=== PATIENT | female | born 1965 | race Caucasian/White ===

== ENCOUNTER 2016-06-20 16:49 | Inpatient (IN) | payer OTHER, MEDICARE ==
[2016-06-20] MEDS ORDERED: IPRATROPIUM/ALBUTEROL 0.5-2.5 MG/3 ML AMPUL NEB ONE (16:59)
[2016-06-20] MEDS ORDERED: METHYLPREDNISOLONE INJ 125 MG/2 ML SDV IV ONE (17:00)
--- NOTE | 2016-06-20 17:04 | ER Document Report ---
ED General - General Chief Complaint: Shortness Of Breath Stated Complaint: CHEST HEAVINESS Time seen by provider: 17:01 Mode of Arrival: Medic Information source: Patient Notes: 51-year-old female with 2 week history of gradually worsening cough productive of yellow sputum, shortness of breath, dyspnea on exertion, sore throat with coughing, subjective fever and chills. She reports nausea for the past 2 days but no vomiting. She reports diarrhea today on 2 occasions. She denies dysuria , abdominal pain, or back pain. She does report diffuse body aches and reported EMS personnel chest heaviness but to this examiner she states she only hurts when she coughs in her chest. Patient denies earache, headache, visual disturbances, pain numbness weakness to extremities. Physical Exam: General: Alert, appears well. HEENT: Normocephalic. Atraumatic. PERRLA. Extraocular movements intact. Oropharynx clear. Neck: Supple. Non-tender. No JVD Respiratory: Wheezes and rhonchi throughout all lung padron breath sounds equal bilaterally tachypnea and no accessory muscle use. Cardiovascular: Tachycardic and regular no murmur Abdominal: Normal Inspection. Soft, non-tender. No distension. Normal Bowel Sounds. Back: Non-tender. No deformity or step off. Extremities: Moves all four extremities. EXTREMITIES warm 2+ pulses of cyanosis no edema no Homans sign bilaterally Neurological: Speech clear mentation clear moves all extremities to command. Psychological: Normal affect. Normal Mood. Skin: Warm. Dry. Normal color. - Related Data Allergies/Adverse Reactions: bupropion [From Wellbutrin] Adverse Reaction (Verified 06/20/16 18:49) codeine Adverse Reaction (Verified 06/20/16 18:49) Past Medical History - Social History Smoking Status: Current Every Day Smoker Family History: Hypertension. denies: CAD - Past Medical History Cardiac Medical History: Reports: Hx Hypercholesterolemia, Hx Hypertension Denies: Hx Coronary Artery Disease Neurological Medical History: Denies: Hx Cerebrovascular Accident Endocrine Medical History: Reports: Hx Diabetes Mellitus Type 2 Past Surgical History: Reports: Hx Cholecystectomy Review of Systems - Review of Systems Constitutional: See HPI EENT: Throat pain. denies: Ear pain Cardiovascular: See HPI Respiratory: See HPI Gastrointestinal: See HPI Genitourinary: denies: Burning, Dysuria Musculoskeletal: Muscle pain. denies: Ankle swelling Hematologic/Lymphatic: denies: Swollen glands Neurological/Psychological: denies: Weakness, Numbness Physical Exam - Vital signs Vitals: Temp Pulse Resp BP Pulse Ox 98.3 F 104 H 16 96/62 L 96 06/20/16 16:53 06/20/16 16:53 06/20/16 16:53 06/20/16 16:53 06/20/16 16:53 Course - Re-evaluation Re-evalutation: 06/20/16 19:35 Reevaluation patient after one nebulizer treatment in route 3 here 125 mg of Solu-Medrol 1 g of Rocephin and a liter saline shows her oxygen saturation to be 87% on room air. Patient continues wheezes and rhonchi throughout all lung padron with prolonged expiratory phase Concerned that she will not do well in the outpatient setting at this point I discussed case with Dr. Rios of the hospitalist service and he asked that patient be admitted to a telemetry bed - Vital Signs Vital signs: Temp Pulse Resp BP Pulse Ox 98.3 F 104 H 13 120/69 96 06/20/16 16:53 06/20/16 16:53 06/20/16 18:01 06/20/16 18:01 06/20/16 18:01 - Laboratory Result Diagrams: 06/20/16 17:22 06/20/16 17:22 Laboratory results interpreted by me: 06/20/16 06/20/16 06/20/16 17:22 17:22 17:22 RBC 5.95 H MCV 77 L MCH 24.1 L MCHC 31.4 L RDW 18.2 H Lymphocytes % 8.9 L Monocytes % 14.1 H Sodium 133.7 L Chloride 94 L Creatinine 1.39 H Est GFR ( Amer) 49 L Est GFR (Non-Af Amer) 40 L Glucose 155 H NT-Pro-B Natriuret Pep 277 H - EKG Interpretation by Me Additional EKG results interpreted by me: 06/20/16 17:11 EKG reviewed by myself sinus tachycardia at 100 no acute changes Discharge - Discharge Clinical Impression: Acute respiratory failure with hypoxemia Pneumonia Qualifiers: Pneumonia type: due to unspecified organism Laterality: right Lung location: lower lobe of lung Qualified Code(s): J18.1 - Lobar pneumonia, unspecified organism Condition: Fair Disposition: ADMITTED INPATIENT Admitting Provider: Hospitalist Unit Admitted: Telemetry
[2016-06-20 17:33] LABS: ABSOLUTE BASOPHILS # (AUTO) 0.1 10^3/uL (0.0-0.2); ABSOLUTE LYMPHOCYTES (AUTO) 0.9 10^3/uL (0.5-4.7); ABSOLUTE MONOCYTES (AUTO) 1.4 10^3/uL (0.1-1.4); ABSOLUTE NEUT (AUTO) 7.8 10^3/uL (1.7-8.2); BASOPHILS % (AUTO) 0.6 % (0-2); HEMATOCRIT 45.6 % (36.0-47.0); HEMOGLOBIN 14.3 g/dL (12.0-15.5); HGB HCT DIFFERENCE -2.7; LYMPHOCYTES % (AUTO) 8.9 % (13-45); MEAN CORPUSCULAR HEMOGLOBIN 24.1 pg (27.0-33.4); MEAN CORPUSCULAR HGB CONC 31.4 g/dL (32.0-36.0); MEAN CORPUSCULAR VOLUME 77 fl (80-97); MONOCYTES % (AUTO) 14.1 % (3-13); RED BLOOD COUNT 5.95 10^6/uL (3.72-5.28); RED CELL DISTRIBUTION WIDTH 18.2 % (11.5-14.0); SEGMENTED NEUTROPHILS % (AUTO) 76.4 % (42-78); WHITE BLOOD COUNT 10.2 10^3/uL (4.0-10.5)
[2016-06-20 17:54] LABS: ALANINE AMINOTRANSFERASE 25 U/L (9-52); ALBUMIN 4.6 g/dL (3.5-5.0); ALKALINE PHOSPHATASE 66 U/L (38-126); ANION GAP 16 (5-19); ASPARTATE AMINO TRANSFERASE 23 U/L (14-36); BILIRUBIN,TOTAL 0.8 mg/dL (0.2-1.3); BLOOD UREA NITROGEN 14 mg/dL (7-20); CALCIUM 9.6 mg/dL (8.4-10.2); CARBON DIOXIDE 24 mmol/L (22-30); CHLORIDE 94 mmol/L (98-107); CREATINE KINASE 75 U/L (30-135); CREATININE RESULT 1.39 mg/dL (0.52-1.25); GLUCOSE 155 mg/dL (75-110); MAGNESIUM 1.9 mg/dL (1.6-2.3); POTASSIUM 3.6 mmol/L (3.6-5.0); SODIUM 133.7 mmol/L (137-145); TOTAL PROTEIN 7.7 g/dL (6.3-8.2)
[2016-06-20 18:06] LABS: CREATINE KINASE MB 0.67 ng/mL (<4.55)
[2016-06-20 18:07] LABS: TROPONIN I < 0.012 ng/mL
[2016-06-20] MEDS ORDERED: NORMAL SALINE 1000 ML 1,000 ML IV ONE (18:24)
[2016-06-20] MEDS ORDERED: CEFTRIAXONE 1 GM/D5W RTU 50 ML IV ONE (18:24)
--- NOTE | 2016-06-20 18:56 | EKG REPORT ---
SEVERITY:- BORDERLINE ECG - SINUS TACHYCARDIA PROBABLE LEFT ATRIAL ABNORMALITY NONSPECIFIC ST-T CHANGES LATERAL LEADS. : Confirmed by: Gerald Appiah MD 20-Jun-2016 18:55:41
[2016-06-20] MEDS ORDERED: ACETAMINOPHEN 325 MG TABLET PO PRN (19:35)
[2016-06-20] MEDS ORDERED: LEVOFLOXACIN 750 MG/D5W RTU 150 ML IV ONE (19:37)
[2016-06-20] MEDS: IPRATROPIUM/ALBUTEROL 0.5-2.5 MG/3 ML AMPUL NEB SCH (20:39)
[2016-06-20] MEDS: GUAIFENESIN SYRP 200 MG/10 ML UDC PO PRN (21:09)
[2016-06-20] MEDS ORDERED: DEXTROSE 50%-WATER 25 GM/50 ML DISP.SYRIN IV PRN ×2 (21:30)
[2016-06-20] MEDS ORDERED: DEXTROSE 40% GEL 15 GM TUBE PO PRN ×2 (21:30)
[2016-06-20] MEDS ORDERED: GLUCAGON,HUMAN RECOMB 1 MG INJ IM PRN (21:30)
[2016-06-20] MEDS: AZITHROMYCIN 500 MG in DEXTROSE 5%-WATER 250 ML IV SCH (22:50)
[2016-06-20] MEDS: HEPARIN SOD (PORCINE) 5,000 UNIT/ML 1 ML SYRINGE SUBCUT SCH (22:50)
[2016-06-20] MEDS: FLUTICASONE NASAL SPRAY 50 MCG/SPRY 120 SPRAY/16 GM NASL SCH (23:16)
[2016-06-20] MEDS: INSULIN LISPRO 100 UNIT/ML 3 ML VIAL SUBCUT PRN (23:17)
[2016-06-21] MEDS: IBUPROFEN 600 MG TABLET PO PRN ×3 (00:25→18:31)
[2016-06-21] MEDS: GUAIFENESIN SYRP 200 MG/10 ML UDC PO PRN ×2 (01:30→08:24)
[2016-06-21] MEDS: IPRATROPIUM/ALBUTEROL 0.5-2.5 MG/3 ML AMPUL NEB SCH ×4 (02:06→20:01)
--- NOTE | 2016-06-21 03:14 | PDOC H&P ---
History of Present Illness Admission Date/PCP: 06/20/16 19:36 Patient complains of: Shortness of breath and cough History of Present Illness: NILDA DUVALL is a 51 year old female with a past Nico history of morbid obesity diabetes hypertension and sleep apnea who had been her usual state of health until approximately 3 days ago noting exceptional shortness of breath and a productive cough of purulent sputum and pleuritic chest pain. Use of over -the-counter medications have been of little help prompting evaluation emergency room where she is found to have a right lower lobe pneumonia and hypoxia with a pulse oximetry of 87% on room air she's referred to the hospitalist for admission. She denies infectious contacts or recent change in medications. Patient is tobacco dependent from the age of 19 Past Medical History Cardiac Medical History: Reports: Hyperlipidema, Hypertension Denies: Coronary Artery Disease Pulmonary Medical History: Reports: Chronic Obstructive Pulmonary Disease (COPD) , Sleep Apnea Endocrine Medical History: Reports: Diabetes Mellitus Type 2 Psychiatric Medical History: Reports: Depression Hematology: Reports: Anemia Past Surgical History Past Surgical History: Reports: Section - 2, Cholecystectomy, Tonsillectomy Social History Information Source: Patient Lives with: Family Smoking Status: Current Every Day Smoker Cigarettes Packs Per Day: 1 Frequency of Alcohol Use: Rare Hx Recreational Drug Use: No Drugs: None Hx Prescription Drug Abuse: No - Advance Directive Resuscitation Status: Full Code Family History Family History: CAD, Hypertension Parental Family History Reviewed: Yes Children Family History Reviewed: Yes Sibling(s) Family History Reviewed.: Yes Medication/Allergy Home Medications: Albuterol Sulfate [Albuterol Sulfate 2.5mg/3 mL] 1 vial IH Q4HP PRN 06/20/16 Albuterol Sulfate [Ventolin HFA MDI 18 GM] 2 puff IH Q4HP PRN 06/20/16 Atorvastatin Calcium [Lipitor 10 mg Tablet] 10 mg PO QHS 06/20/16 Bisoprolol Fumarate [Zebeta 10 mg Tablet] 10 mg PO DAILY 06/20/16 Canagliflozin [Invokana] 100 mg PO DAILY 06/20/16 Dextroamphetamine/Amphetamine [Adderall 20 mg Tablet] 20 mg PO BID 06/20/16 Duloxetine HCl [Cymbalta] 60 mg PO BID 06/20/16 Famotidine [Pepcid 20 mg Tablet] 20 mg PO HSP PRN 06/20/16 Ibuprofen [Advil] 600 mg PO Q6HP PRN 06/20/16 Naproxen Na-Diphenhydramin HCl [Aleve Pm Caplet] 1 each PO HSP PRN 06/20/16 Pantoprazole Sodium [Protonix] 40 mg PO BIDBS 06/20/16 Pregabalin [Lyrica 100 mg Capsule] 100 mg PO BID 06/20/16 Pregabalin [Lyrica 50 mg Capsule] 50 mg PO BID 06/20/16 Roflumilast [Daliresp 500 mcg Tablet] 500 mcg PO DAILY 06/20/16 Sitagliptin Phosphate [Januvia] 100 mg PO DAILY 06/20/16 Allergies/Adverse Reactions: bupropion [From Wellbutrin] Adverse Reaction (Verified 06/20/16 18:49) codeine Adverse Reaction (Verified 06/20/16 18:49) Review of Systems Constitutional: PRESENT: chills, fatigue, weakness Eyes: ABSENT: visual disturbances Ears: ABSENT: hearing changes Cardiovascular: ABSENT: chest pain, dyspnea on exertion, edema, orthropnea, palpitations Respiratory: PRESENT: cough, dyspnea, sputum, other - Pleuritic chest pain with coughing and deep inspiration Gastrointestinal: ABSENT: abdominal pain, constipation, diarrhea, hematemesis, hematochezia, nausea, vomiting Genitourinary: ABSENT: dysuria, hematuria Musculoskeletal: ABSENT: joint swelling Integumentary: ABSENT: rash, wounds Neurological: ABSENT: abnormal gait, abnormal speech, confusion, dizziness, focal weakness, syncope Psychiatric: ABSENT: anxiety, depression, homidical ideation, suicidal ideation Endocrine: ABSENT: cold intolerance, heat intolerance, polydipsia, polyuria Hematologic/Lymphatic: ABSENT: easy bleeding, easy bruising Physical Exam Vital Signs: Temp Pulse Resp BP Pulse Ox 97.7 F 76 16 109/68 95 06/20/16 23:14 06/21/16 02:05 06/21/16 02:05 06/20/16 23:13 06/20/16 23:13 General appearance: PRESENT: cooperative, disheveled, mild distress, morbidly obese, well-developed, well-nourished Head exam: PRESENT: atraumatic, normocephalic Eye exam: PRESENT: conjunctiva pink, EOMI, PERRLA. ABSENT: scleral icterus Ear exam: PRESENT: normal external ear exam Mouth exam: PRESENT: moist, tongue midline Neck exam: ABSENT: carotid bruit, JVD, lymphadenopathy, thyromegaly Respiratory exam: PRESENT: accessory muscle use, decreased breath sounds, prolonged expiratory phas, rhonchi, symmetrical, tachypnea. ABSENT: rales, wheezes Cardiovascular exam: PRESENT: RRR. ABSENT: diastolic murmur, rubs, systolic murmur Pulses: PRESENT: normal dorsalis pedis pul Vascular exam: PRESENT: normal capillary refill GI/Abdominal exam: PRESENT: normal bowel sounds, soft. ABSENT: distended, guarding, mass, organolmegaly, rebound, tenderness Rectal exam: PRESENT: deferred Extremities exam: PRESENT: full ROM. ABSENT: calf tenderness, clubbing, pedal edema Neurological exam: PRESENT: alert, awake, oriented to person, oriented to place , oriented to time, oriented to situation, CN II-XII grossly intact. ABSENT: motor sensory deficit Psychiatric exam: PRESENT: appropriate affect, normal mood. ABSENT: homicidal ideation, suicidal ideation Skin exam: PRESENT: dry, intact, warm. ABSENT: cyanosis, rash Results Impressions: Chest X-Ray 06/20/16 16:57 IMPRESSION: Mild right lower lobar pneumonia/pneumonitis. Assessment & Plan - Diagnosis (1) Pneumonia Qualifiers: Pneumonia type: due to unspecified organism Laterality: right Lung location: lower lobe of lung Qualified Code(s): J18.1 - Lobar pneumonia, unspecified organism Is this a current diagnosis for this admission?: YesPlan: Empiric antibiotics, albuterol Atrovent, incentive spirometry follow-up CBC blood and sputum culture (2) COPD exacerbation Is this a current diagnosis for this admission?: YesPlan: Albuterol and Atrovent incentive spirometry BiPAP and tobacco cessation counseling (3) Obstructive sleep apnea Is this a current diagnosis for this admission?: YesPlan: BiPAP (4) Diabetes Qualifiers: Diabetes mellitus type: type 2 Plan: Home regiment with sliding scale insulin before every meal seen at bedtime (5) Acute hypoxemic respiratory failure Is this a current diagnosis for this admission?: YesPlan: Secondary to #1 add supplemental oxygen - Time Time Spent: 50 to 70 Minutes
[2016-06-21] MEDS: LANSOPRAZOLE 30 MG TAB.RAP.DR PO SCH ×2 (05:05→17:22)
[2016-06-21] MEDS: HEPARIN SOD (PORCINE) 5,000 UNIT/ML 1 ML SYRINGE SUBCUT SCH ×3 (05:06→21:07)
[2016-06-21 07:52] LABS: ABSOLUTE LYMPHOCYTES (AUTO) 0.4 10^3/uL (0.5-4.7); ABSOLUTE MONOCYTES (AUTO) 0.4 10^3/uL (0.1-1.4); ABSOLUTE NEUT (AUTO) 5.7 10^3/uL (1.7-8.2); BASOPHILS % (AUTO) 0.4 % (0-2); HEMATOCRIT 43.5 % (36.0-47.0); HEMOGLOBIN 13.5 g/dL (12.0-15.5); LYMPHOCYTES % (AUTO) 5.9 % (13-45); MEAN CORPUSCULAR HGB CONC 31.1 g/dL (32.0-36.0); MEAN CORPUSCULAR VOLUME 77 fl (80-97); MONOCYTES % (AUTO) 6.6 % (3-13); RED BLOOD COUNT 5.64 10^6/uL (3.72-5.28); RED CELL DISTRIBUTION WIDTH 18.1 % (11.5-14.0); SEGMENTED NEUTROPHILS % (AUTO) 87.1 % (42-78); WHITE BLOOD COUNT 6.6 10^3/uL (4.0-10.5)
[2016-06-21 08:12] LABS: ANION GAP 16 (5-19); BLOOD UREA NITROGEN 24 mg/dL (7-20); CALCIUM 9.3 mg/dL (8.4-10.2); CARBON DIOXIDE 23 mmol/L (22-30); CHLORIDE 98 mmol/L (98-107); CREATININE RESULT 1.08 mg/dL (0.52-1.25); GLUCOSE 180 mg/dL (75-110); POTASSIUM 4.3 mmol/L (3.6-5.0)
[2016-06-21] MEDS: CEFTRIAXONE 1 GM/D5W RTU 50 ML IV SCH (11:37)
[2016-06-21] MEDS: PREGABALIN 50 MG CAPSULE PO SCH ×2 (11:39→21:09)
[2016-06-21] MEDS: DULOXETINE HCL 30 MG CAPSULE.DR PO SCH ×2 (11:40→17:22)
[2016-06-21] MEDS: SITAGLIPTIN PHOSPHATE 50 MG TABLET PO SCH (11:40)
[2016-06-21] MEDS: FLUTICASONE NASAL SPRAY 50 MCG/SPRY 120 SPRAY/16 GM NASL SCH ×2 (11:45→21:09)
[2016-06-21] MEDS ORDERED: GUAIFENESIN 600 MG TABLET.SA PO ONE (13:00)
[2016-06-21] MEDS: NICOTINE 14 MG/24 HR PATCH.TD24 TD SCH (13:18)
[2016-06-21] MEDS: BENZONATATE 100 MG CAPSULE PO SCH ×2 (13:19→21:09)
[2016-06-21] MEDS: OXYCODONE HCL IR 5 MG TABLET PO PRN ×2 (13:19→19:19)
[2016-06-21] MEDS: ROFLUMILAST 500 MCG TABLET PO SCH (17:24)
--- NOTE | 2016-06-21 17:24 | PDOC PROGRESS REPORT ---
Subjective Progress Note for:: 06/21/16 Subjective:: feels better states breathing is easier alert and awake Physical Exam Vital Signs: Temp Pulse Resp BP Pulse Ox 99 F 85 16 120/56 L 96 06/21/16 12:00 06/21/16 14:00 06/21/16 14:00 06/21/16 12:00 06/21/16 14:00 Intake & Output 06/20/16 06/21/16 06/22/16 00:59 00:59 00:59 Intake Total 605 Balance 605 Weight 114 kg 114 kg General appearance: PRESENT: no acute distress, well-developed, well-nourished Head exam: PRESENT: atraumatic, normocephalic Eye exam: PRESENT: conjunctiva pink, EOMI, PERRLA. ABSENT: scleral icterus Ear exam: PRESENT: normal external ear exam Mouth exam: PRESENT: moist, tongue midline Neck exam: ABSENT: carotid bruit, JVD, lymphadenopathy, thyromegaly Respiratory exam: PRESENT: wheezes - bilaterally. ABSENT: rales, rhonchi Cardiovascular exam: PRESENT: RRR. ABSENT: diastolic murmur, rubs, systolic murmur Pulses: PRESENT: normal dorsalis pedis pul Vascular exam: PRESENT: normal capillary refill GI/Abdominal exam: PRESENT: normal bowel sounds, soft. ABSENT: distended, guarding, mass, organolmegaly, rebound, tenderness Rectal exam: PRESENT: deferred Extremities exam: PRESENT: full ROM. ABSENT: calf tenderness, clubbing, pedal edema Neurological exam: PRESENT: alert, awake, oriented to person, oriented to place , oriented to time, oriented to situation, CN II-XII grossly intact. ABSENT: motor sensory deficit Psychiatric exam: PRESENT: appropriate affect, normal mood. ABSENT: homicidal ideation, suicidal ideation Skin exam: PRESENT: dry, intact, warm. ABSENT: cyanosis, rash Results Laboratory Results: 06/21/16 06:58 06/21/16 06:58 06/21/16 06/21/16 06:58 06:58 WBC 6.6 RBC 5.64 H Hgb 13.5 Hct 43.5 MCV 77 L MCH 24.0 L MCHC 31.1 L RDW 18.1 H Plt Count 216 Seg Neutrophils % 87.1 H Lymphocytes % 5.9 L Monocytes % 6.6 Eosinophils % 0.0 Basophils % 0.4 Absolute Neutrophils 5.7 Absolute Lymphocytes 0.4 L Absolute Monocytes 0.4 Absolute Eosinophils 0.0 Absolute Basophils 0.0 Sodium 137.0 Potassium 4.3 Chloride 98 Carbon Dioxide 23 Anion Gap 16 BUN 24 H Creatinine 1.08 Est GFR ( Amer) > 60 Est GFR (Non-Af Amer) 54 L Glucose 180 H Calcium 9.3 Impressions: Chest X-Ray 06/20/16 16:57 IMPRESSION: Mild right lower lobar pneumonia/pneumonitis. Assessment & Plan - Diagnosis (1) COPD exacerbation Is this a current diagnosis for this admission?: YesPlan: continue steroids , nebs ; added nicotine patch (2) Diabetes Qualifiers: Diabetes mellitus type: type 2 Diabetes mellitus complication status: with unspecified complications Diabetes mellitus skilled nursing insulin use: without termite exterminator helper use Qualified Code(s): E11.8 - Type 2 diabetes mellitus with unspecified complications Is this a current diagnosis for this admission?: Yes (3) Obstructive sleep apnea Is this a current diagnosis for this admission?: YesPlan: continue present management (4) Pneumonia Qualifiers: Pneumonia type: due to unspecified organism Laterality: right Lung location: lower lobe of lung Qualified Code(s): J18.1 - Lobar pneumonia, unspecified organism Is this a current diagnosis for this admission?: YesPlan: continue ceftriaxone/ azithromycin - Time Time Spent with patient: 25-34 minutes Within: within 48 hours
[2016-06-21] MEDS: ATORVASTATIN CALCIUM 10 MG TABLET PO SCH (21:08)
[2016-06-21] MEDS: AZITHROMYCIN 500 MG in DEXTROSE 5%-WATER 250 ML IV SCH (21:09)
[2016-06-21] MEDS: GUAIFENESIN 600 MG TABLET.SA PO SCH (21:09)
[2016-06-21] MEDS: INSULIN LISPRO 100 UNIT/ML 3 ML VIAL SUBCUT PRN (22:14)
[2016-06-21] MEDS ORDERED: DILTIAZEM HCL 60 MG TABLET PO ONE (23:56)
[2016-06-22] MEDS ORDERED: METHYLPREDNISOLONE INJ 125 MG/2 ML SDV IV ONE (00:24)
[2016-06-22] MEDS: OXYCODONE HCL IR 5 MG TABLET PO PRN ×4 (01:22→20:25)
[2016-06-22] MEDS: IPRATROPIUM/ALBUTEROL 0.5-2.5 MG/3 ML AMPUL NEB SCH ×4 (01:45→20:36)
[2016-06-22] MEDS: HEPARIN SOD (PORCINE) 5,000 UNIT/ML 1 ML SYRINGE SUBCUT SCH ×3 (05:14→21:20)
[2016-06-22] MEDS: LANSOPRAZOLE 30 MG TAB.RAP.DR PO SCH ×2 (05:14→17:24)
[2016-06-22] MEDS: BENZONATATE 100 MG CAPSULE PO SCH ×3 (05:14→21:20)
[2016-06-22] MEDS: DILTIAZEM HCL 30 MG TABLET PO SCH ×4 (05:14→23:13)
[2016-06-22 05:51] LABS: HEMATOCRIT 42.7 % (36.0-47.0); HEMOGLOBIN 13.1 g/dL (12.0-15.5); HGB HCT DIFFERENCE -3.4; MEAN CORPUSCULAR HEMOGLOBIN 23.7 pg (27.0-33.4); MEAN CORPUSCULAR HGB CONC 30.7 g/dL (32.0-36.0); MEAN CORPUSCULAR VOLUME 77 fl (80-97); RED BLOOD COUNT 5.53 10^6/uL (3.72-5.28); RED CELL DISTRIBUTION WIDTH 18.1 % (11.5-14.0); WHITE BLOOD COUNT 11.3 10^3/uL (4.0-10.5)
[2016-06-22 06:00] LABS: ANION GAP 15 (5-19); BLOOD UREA NITROGEN 23 mg/dL (7-20); CALCIUM 9.6 mg/dL (8.4-10.2); CARBON DIOXIDE 22 mmol/L (22-30); CHLORIDE 101 mmol/L (98-107); CREATININE RESULT 0.84 mg/dL (0.52-1.25); GLUCOSE 201 mg/dL (75-110); POTASSIUM 4.5 mmol/L (3.6-5.0); SODIUM 138.2 mmol/L (137-145)
[2016-06-22 06:28] LABS: BASOPHILS % (MANUAL) 0 % (0-2); EOSINOPHILS % (MANUAL) 0 % (0-6); LYMPHOCYTES % (MANUAL) 4 % (13-45); RBC MORPHOLOGY COMMENT NORMO-CYTIC/CHROMIC; TOTAL CELLS COUNTED 100
[2016-06-22] MEDS ORDERED: METHYLPREDNISOLONE INJ 125 MG/2 ML SDV IV SCH (07:00)
[2016-06-22] MEDS: INSULIN LISPRO 100 UNIT/ML 3 ML VIAL SUBCUT PRN ×4 (08:01→22:35)
[2016-06-22] MEDS: CEFTRIAXONE 1 GM/D5W RTU 50 ML IV SCH (09:26)
[2016-06-22] MEDS: DULOXETINE HCL 30 MG CAPSULE.DR PO SCH ×2 (09:26→17:23)
[2016-06-22] MEDS: FLUTICASONE NASAL SPRAY 50 MCG/SPRY 120 SPRAY/16 GM NASL SCH ×2 (09:26→21:20)
[2016-06-22] MEDS: SITAGLIPTIN PHOSPHATE 50 MG TABLET PO SCH (09:27)
[2016-06-22] MEDS: GUAIFENESIN 600 MG TABLET.SA PO SCH ×2 (09:27→21:20)
[2016-06-22] MEDS: PREGABALIN 50 MG CAPSULE PO SCH ×2 (09:27→17:23)
[2016-06-22] MEDS: ROFLUMILAST 500 MCG TABLET PO SCH (09:51)
[2016-06-22] MEDS ORDERED: PREGABALIN 50 MG CAPSULE PO SCH (10:00)
[2016-06-22] MEDS ORDERED: PREGABALIN 50 MG CAPSULE PO ONE (10:30)
[2016-06-22] MEDS: NICOTINE 14 MG/24 HR PATCH.TD24 TD SCH (12:24)
[2016-06-22] MEDS: IBUPROFEN 600 MG TABLET PO PRN (13:41)
--- NOTE | 2016-06-22 16:38 | PDOC PROGRESS REPORT ---
Subjective Progress Note for:: 06/22/16 Subjective:: improved some states SOB better ambulates in [place] with minimal dyspnea no cheat pains no fever Physical Exam Vital Signs: Temp Pulse Resp BP Pulse Ox 99.4 F 76 20 129/64 H 96 06/22/16 12:06 06/22/16 15:00 06/22/16 15:00 06/22/16 12:06 06/22/16 15:00 Intake & Output 06/21/16 06/22/16 06/23/16 00:59 00:59 00:59 Intake Total 1678 2004 Output Total 103 Balance 1678 1902 Weight 114 kg 114 kg 114 kg General appearance: PRESENT: no acute distress, obese, well-developed Head exam: PRESENT: atraumatic, normocephalic Eye exam: PRESENT: conjunctiva pink, EOMI, PERRLA. ABSENT: scleral icterus Ear exam: PRESENT: normal external ear exam Mouth exam: PRESENT: moist, tongue midline Neck exam: ABSENT: carotid bruit, JVD, lymphadenopathy, thyromegaly Respiratory exam: PRESENT: wheezes - bilaterally. ABSENT: rales, rhonchi Cardiovascular exam: PRESENT: RRR. ABSENT: diastolic murmur, rubs, systolic murmur Pulses: PRESENT: normal dorsalis pedis pul Vascular exam: PRESENT: normal capillary refill GI/Abdominal exam: PRESENT: normal bowel sounds, soft. ABSENT: distended, guarding, mass, organolmegaly, rebound, tenderness Rectal exam: PRESENT: deferred Extremities exam: PRESENT: full ROM. ABSENT: calf tenderness, clubbing, pedal edema Neurological exam: PRESENT: alert, awake, oriented to person, oriented to place , oriented to time, oriented to situation, CN II-XII grossly intact. ABSENT: motor sensory deficit Psychiatric exam: PRESENT: appropriate affect, normal mood. ABSENT: homicidal ideation, suicidal ideation Skin exam: PRESENT: dry, intact, warm. ABSENT: cyanosis, rash Results Laboratory Results: 06/22/16 05:18 06/22/16 05:18 06/22/16 06/22/16 05:18 05:18 WBC 11.3 H RBC 5.53 H Hgb 13.1 Hct 42.7 MCV 77 L MCH 23.7 L MCHC 30.7 L RDW 18.1 H Plt Count 179 Seg Neutrophils % Not Reportable Lymphocytes % Not Reportable Monocytes % Not Reportable Eosinophils % Not Reportable Basophils % Not Reportable Absolute Neutrophils Not Reportable Absolute Lymphocytes Not Reportable Absolute Monocytes Not Reportable Absolute Eosinophils Not Reportable Absolute Basophils Not Reportable Sodium 138.2 Potassium 4.5 Chloride 101 Carbon Dioxide 22 Anion Gap 15 BUN 23 H Creatinine 0.84 Est GFR ( Amer) > 60 Est GFR (Non-Af Amer) > 60 Glucose 201 H Calcium 9.6 06/21/16 01:00 Nasophary ([facility] Only) MRSA Surveillance Culture - Final NO MRSA RECOVERED Impressions: Chest X-Ray 06/20/16 16:57 IMPRESSION: Mild right lower lobar pneumonia/pneumonitis. Assessment & Plan - Diagnosis (1) COPD exacerbation Is this a current diagnosis for this admission?: YesPlan: continue present management decrease steroids (2) Diabetes Qualifiers: Diabetes mellitus type: type 2 Diabetes mellitus complication status: with unspecified complications Diabetes mellitus fci insulin use: without fci use Qualified Code(s): E11.8 - Type 2 diabetes mellitus with unspecified complications; Z79.4 - intermediate frame tender (current) use of insulin Is this a current diagnosis for this admission?: Yes (3) Obstructive sleep apnea Is this a current diagnosis for this admission?: YesPlan: use bipap at nite did not bring cpap from home (4) Pneumonia Qualifiers: Pneumonia type: due to unspecified organism Laterality: right Lung location: lower lobe of lung Qualified Code(s): J18.1 - Lobar pneumonia, unspecified organism Is this a current diagnosis for this admission?: YesPlan: continue present antibiotics - Time Time Spent with patient: patient wishes to be discharged in am Time Spent with patient: 25-34 minutes
[2016-06-22] MEDS: ATORVASTATIN CALCIUM 10 MG TABLET PO SCH (21:20)
[2016-06-22] MEDS: METHYLPREDNISOLONE INJ 125 MG/2 ML SDV IV SCH (21:21)
[2016-06-22] MEDS: AZITHROMYCIN 500 MG in DEXTROSE 5%-WATER 250 ML IV SCH (21:21)
[2016-06-23] MEDS: IPRATROPIUM/ALBUTEROL 0.5-2.5 MG/3 ML AMPUL NEB SCH ×4 (02:14→19:50)
[2016-06-23 04:39] LABS: ABSOLUTE LYMPHOCYTES (AUTO) 0.6 10^3/uL (0.5-4.7); ABSOLUTE MONOCYTES (AUTO) 0.8 10^3/uL (0.1-1.4); ABSOLUTE NEUT (AUTO) 7.3 10^3/uL (1.7-8.2); BASOPHILS % (AUTO) 0.2 % (0-2); HEMATOCRIT 41.9 % (36.0-47.0); HEMOGLOBIN 12.8 g/dL (12.0-15.5); HGB HCT DIFFERENCE -3.5; LYMPHOCYTES % (AUTO) 7.2 % (13-45); MEAN CORPUSCULAR HEMOGLOBIN 23.6 pg (27.0-33.4); MEAN CORPUSCULAR HGB CONC 30.5 g/dL (32.0-36.0); MEAN CORPUSCULAR VOLUME 77 fl (80-97); MONOCYTES % (AUTO) 8.7 % (3-13); RED BLOOD COUNT 5.42 10^6/uL (3.72-5.28); RED CELL DISTRIBUTION WIDTH 18.7 % (11.5-14.0); SEGMENTED NEUTROPHILS % (AUTO) 83.9 % (42-78); WHITE BLOOD COUNT 8.7 10^3/uL (4.0-10.5)
[2016-06-23 04:57] LABS: ANION GAP 14 (5-19); BLOOD UREA NITROGEN 20 mg/dL (7-20); CALCIUM 9.1 mg/dL (8.4-10.2); CARBON DIOXIDE 24 mmol/L (22-30); CHLORIDE 102 mmol/L (98-107); CREATININE RESULT 0.71 mg/dL (0.52-1.25); GLUCOSE 249 mg/dL (75-110); SODIUM 139.5 mmol/L (137-145)
[2016-06-23] MEDS: METHYLPREDNISOLONE INJ 125 MG/2 ML SDV IV SCH ×3 (05:08→23:11)
[2016-06-23] MEDS: HEPARIN SOD (PORCINE) 5,000 UNIT/ML 1 ML SYRINGE SUBCUT SCH ×3 (05:08→23:11)
[2016-06-23] MEDS: LANSOPRAZOLE 30 MG TAB.RAP.DR PO SCH ×2 (05:08→17:47)
[2016-06-23] MEDS: DILTIAZEM HCL 30 MG TABLET PO SCH (05:08)
[2016-06-23] MEDS: BENZONATATE 100 MG CAPSULE PO SCH ×2 (05:08→14:02)
[2016-06-23] MEDS: INSULIN LISPRO 100 UNIT/ML 3 ML VIAL SUBCUT PRN ×2 (07:39→17:47)
[2016-06-23] MEDS: OXYCODONE HCL IR 5 MG TABLET PO PRN (08:44)
[2016-06-23] MEDS: IBUPROFEN 600 MG TABLET PO PRN (08:45)
[2016-06-23] MEDS: CEFTRIAXONE 1 GM/D5W RTU 50 ML IV SCH (09:07)
[2016-06-23] MEDS: SITAGLIPTIN PHOSPHATE 50 MG TABLET PO SCH (09:08)
[2016-06-23] MEDS: ROFLUMILAST 500 MCG TABLET PO SCH (09:08)
[2016-06-23] MEDS: PREGABALIN 50 MG CAPSULE PO SCH ×2 (09:08→17:47)
[2016-06-23] MEDS: FLUTICASONE NASAL SPRAY 50 MCG/SPRY 120 SPRAY/16 GM NASL SCH ×2 (09:08→23:12)
[2016-06-23] MEDS: GUAIFENESIN 600 MG TABLET.SA PO SCH ×2 (09:08→23:11)
[2016-06-23] MEDS: DULOXETINE HCL 30 MG CAPSULE.DR PO SCH ×2 (09:08→17:47)
[2016-06-23] MEDS: NICOTINE 14 MG/24 HR PATCH.TD24 TD SCH (14:02)
[2016-06-23] MEDS: DILTIAZEM HCL 120 MG CAP.SR.24H PO SCH (14:03)
--- NOTE | 2016-06-23 14:06 | PDOC PROGRESS REPORT ---
Subjective Progress Note for:: 06/23/16 Subjective:: still SOB no fever or chills hypoxemic at 89% if ambulates without oxygen Physical Exam Vital Signs: Temp Pulse Resp BP Pulse Ox 99.2 F 90 20 133/51 H 92 06/23/16 08:21 06/23/16 08:22 06/23/16 08:22 06/23/16 08:21 06/23/16 08:22 Intake & Output 06/22/16 06/23/16 06/24/16 00:59 00:59 00:59 Intake Total 1672104 1455 Output Total 103 Balance 1677 2001 145 Weight 114 kg 114 kg 114 kg General appearance: PRESENT: no acute distress, well-developed, well-nourished Head exam: PRESENT: atraumatic, normocephalic Eye exam: PRESENT: conjunctiva pink, EOMI, PERRLA. ABSENT: scleral icterus Ear exam: PRESENT: normal external ear exam Mouth exam: PRESENT: moist, tongue midline Neck exam: ABSENT: carotid bruit, JVD, lymphadenopathy, thyromegaly Respiratory exam: PRESENT: wheezes - bilaterally. ABSENT: rales, rhonchi Cardiovascular exam: PRESENT: RRR. ABSENT: diastolic murmur, rubs, systolic murmur Pulses: PRESENT: normal dorsalis pedis pul Vascular exam: PRESENT: normal capillary refill GI/Abdominal exam: PRESENT: normal bowel sounds, soft. ABSENT: distended, guarding, mass, organolmegaly, rebound, tenderness Rectal exam: PRESENT: deferred Extremities exam: PRESENT: full ROM. ABSENT: calf tenderness, clubbing, pedal edema Neurological exam: PRESENT: alert, awake, oriented to person, oriented to place , oriented to time, oriented to situation, CN II-XII grossly intact. ABSENT: motor sensory deficit Psychiatric exam: PRESENT: appropriate affect, normal mood. ABSENT: homicidal ideation, suicidal ideation Skin exam: PRESENT: dry, intact, warm. ABSENT: cyanosis, rash Results Laboratory Results: 06/23/16 04:25 06/23/16 04:25 06/23/16 06/23/16 04:25 04:25 WBC 8.7 RBC 5.42 H Hgb 12.8 Hct 41.9 MCV 77 L MCH 23.6 L MCHC 30.5 L RDW 18.7 H Plt Count 187 Seg Neutrophils % 83.9 H Lymphocytes % 7.2 L Monocytes % 8.7 Eosinophils % 0.0 Basophils % 0.2 Absolute Neutrophils 7.3 Absolute Lymphocytes 0.6 Absolute Monocytes 0.8 Absolute Eosinophils 0.0 Absolute Basophils 0.0 Sodium 139.5 Potassium 4.0 Chloride 102 Carbon Dioxide 24 Anion Gap 14 BUN 20 Creatinine 0.71 Est GFR ( Amer) > 60 Est GFR (Non-Af Amer) > 60 Glucose 249 H Calcium 9.1 06/21/16 08:55 Sputum Gram Stain - Final 06/21/16 08:55 Sputum Sputum Culture - Final Group C Beta Streptococcus Normal Milagros 06/21/16 01:00 Nasophary ([facility] Only) MRSA Surveillance Culture - Final NO MRSA RECOVERED Impressions: Chest X-Ray 06/20/16 16:57 IMPRESSION: Mild right lower lobar pneumonia/pneumonitis. Assessment & Plan - Diagnosis (1) COPD exacerbation Is this a current diagnosis for this admission?: Yes (2) Diabetes Qualifiers: Diabetes mellitus type: type 2 Diabetes mellitus complication status: with unspecified complications Diabetes mellitus nursing home insulin use: without buttermaker continuous churn use Qualified Code(s): E11.8 - Type 2 diabetes mellitus with unspecified complications; Z79.4 - termite technician (current) use of insulin Is this a current diagnosis for this admission?: Yes (3) Obstructive sleep apnea Is this a current diagnosis for this admission?: Yes (4) Pneumonia Qualifiers: Pneumonia type: due to unspecified organism Laterality: right Lung location: lower lobe of lung Qualified Code(s): J18.1 - Lobar pneumonia, unspecified organism Is this a current diagnosis for this admission?: Yes - Time Time Spent with patient: continue present management reevaluate patient for discharge in am Time Spent with patient: 25-34 minutes
[2016-06-23] MEDS: OXYCODONE-ACETAMINOPHEN 5-325 MG TABLET PO PRN ×2 (14:53→19:52)
[2016-06-23] MEDS: GUAIFENESIN/CODEINE PHOS 100-10 MG/ 5 ML UDC PO PRN ×2 (14:56→23:12)
--- NOTE | 2016-06-23 18:43 | OPERATIVE REPORT E ---
Operative Report NAME: NILDA DUVALL : 1965 AGE: 51Y DATE OF SURGERY: 06/23/2016 ROOM: 534 PREOPERATIVE DIAGNOSIS: Right breast abscess. POSTOPERATIVE DIAGNOSIS: Right breast abscess. OPERATION: Incision and drainage of right breast abscess. SURGEON: FLORENCE BLANCHARD M.D. ANESTHESIA: Local with 1% Xylocaine. COMPLICATIONS: None. CONDITION: Stable. INDICATIONS FOR PROCEDURE AND FINDINGS: This 51-year-old female is being seen by me because of a right breast abscess that is noted at the 9 o'clock position of the right breast. The abscess itself appears to be approximately 2.5 x 2.5 cm. It is fluctuant, red, tender, and warm. The patient is in need of incision and drainage. PROCEDURE: After consent was obtained, the patient's right breast was prepped and draped in the usual sterile manner. Timeout was achieved, and then local anesthesia was injected just directly over the abscess cavity. We injected the skin and underlying breast tissue. After adequate local anesthesia was achieved, a curvilinear incision was made directly over the fluctuant area of the breast abscess. Incision was carried through skin, and immediately we encountered pus from the wound. Culture and sensitivities were taken, and then the wound was packed with a piece of Adaptic gauze after loculations were broken up. Hemostasis was accomplished using pressure, and then after the dressing had been applied, 4 x 4's and tape were applied directly over the abscess cavity. The patient tolerated the procedure well, and dressing and wound care is to continue daily. DICTATING PHYSICIAN: FLORENCE BLANCHARD M.D. [id number] PHY#: [id number] ID: [id number] JOB#: [id number] ACCT: [id number] cc:FLORENCE BLANCHARD M.D. >
[2016-06-23] MEDS: AZITHROMYCIN 500 MG in DEXTROSE 5%-WATER 250 ML IV SCH (23:11)
[2016-06-23] MEDS: ATORVASTATIN CALCIUM 10 MG TABLET PO SCH (23:12)
[2016-06-24] MEDS: OXYCODONE-ACETAMINOPHEN 5-325 MG TABLET PO PRN ×6 (00:02→23:33)
[2016-06-24] MEDS: IPRATROPIUM/ALBUTEROL 0.5-2.5 MG/3 ML AMPUL NEB SCH ×4 (02:00→19:53)
[2016-06-24] MEDS: INSULIN LISPRO 100 UNIT/ML 3 ML VIAL SUBCUT PRN ×5 (03:22→22:06)
[2016-06-24] MEDS: HEPARIN SOD (PORCINE) 5,000 UNIT/ML 1 ML SYRINGE SUBCUT SCH ×3 (06:27→22:06)
[2016-06-24] MEDS: LANSOPRAZOLE 30 MG TAB.RAP.DR PO SCH ×2 (06:27→17:23)
[2016-06-24] MEDS: GUAIFENESIN/CODEINE PHOS 100-10 MG/ 5 ML UDC PO PRN ×3 (06:27→23:34)
[2016-06-24] MEDS: METHYLPREDNISOLONE INJ 125 MG/2 ML SDV IV SCH ×3 (06:27→22:06)
[2016-06-24] MEDS: DULOXETINE HCL 30 MG CAPSULE.DR PO SCH ×2 (09:25→17:22)
[2016-06-24] MEDS: SITAGLIPTIN PHOSPHATE 50 MG TABLET PO SCH (09:25)
[2016-06-24] MEDS: GUAIFENESIN 600 MG TABLET.SA PO SCH ×2 (09:26→22:06)
[2016-06-24] MEDS: CEFTRIAXONE 1 GM/D5W RTU 50 ML IV SCH (09:27)
[2016-06-24] MEDS: PREGABALIN 50 MG CAPSULE PO SCH (09:27)
[2016-06-24] MEDS: FLUTICASONE NASAL SPRAY 50 MCG/SPRY 120 SPRAY/16 GM NASL SCH ×2 (09:29→23:35)
[2016-06-24] MEDS: ROFLUMILAST 500 MCG TABLET PO SCH (09:30)
[2016-06-24] MEDS ORDERED: DILTIAZEM HCL 120 MG CAP.SR.24H PO ONE (10:00)
--- NOTE | 2016-06-24 12:02 | PDOC PROGRESS REPORT ---
Subjective Progress Note for:: 06/24/16 Subjective:: No complaints Physical Exam Vital Signs: Temp Pulse Resp BP Pulse Ox 97.4 F 71 18 148/58 H 91 L 06/24/16 08:12 06/24/16 08:12 06/24/16 08:12 06/24/16 08:12 06/24/16 08:12 Intake & Output 06/23/16 06/24/16 06/25/16 06:59 06:59 06:59 Intake Total 2405 2700 Output Total 100 1 Balance 2305 2699 Weight 114 kg 114.2 kg General appearance: PRESENT: no acute distress Additional comments: Right breast examination, wound cavity clean and granulating. Nothing further debris Results Laboratory Results: 06/23/16 04:25 06/23/16 04:25 06/21/16 08:55 Sputum Gram Stain - Final 06/21/16 08:55 Sputum Sputum Culture - Final Group C Beta Streptococcus Normal Milagros Impressions: Chest X-Ray 06/20/16 16:57 IMPRESSION: Mild right lower lobar pneumonia/pneumonitis. Assessment & Plan - Diagnosis (1) Abscess of right breast Is this a current diagnosis for this admission?: YesPlan: Plan: 1. Continue local wound care, dressing changes; patient may shower using a [employer] scrub brush. 2. Return to surgical clinic on a when necessary basis.
[2016-06-24] MEDS: NICOTINE 14 MG/24 HR PATCH.TD24 TD SCH (12:17)
--- NOTE | 2016-06-24 14:51 | PDOC PROGRESS REPORT ---
Subjective Progress Note for:: 06/24/16 Subjective:: Patient is still extremely short of breath and hypoxemic on room air with ambulation He states she is very mildly improved No chest pain or palpitations no abdominal pain vomiting Physical Exam Vital Signs: Temp Pulse Resp BP Pulse Ox 98.7 F 75 18 137/68 H 95 06/24/16 10:58 06/24/16 13:20 06/24/16 13:20 06/24/16 10:58 06/24/16 13:20 Intake & Output 06/23/16 06/24/16 06/25/16 00:59 00:59 00:59 Intake Total 2105 3855 300 Output Total 103 1 Balance 2001 3854 300 Weight 114 kg 114.2 kg 114.2 kg General appearance: PRESENT: no acute distress, obese, well-developed, well- nourished Head exam: PRESENT: atraumatic, normocephalic Eye exam: PRESENT: conjunctiva pink, EOMI, PERRLA. ABSENT: scleral icterus Ear exam: PRESENT: normal external ear exam Mouth exam: PRESENT: moist, tongue midline Neck exam: ABSENT: carotid bruit, JVD, lymphadenopathy, thyromegaly Respiratory exam: PRESENT: rhonchi, wheezes - Bilaterally. ABSENT: rales Cardiovascular exam: PRESENT: RRR. ABSENT: diastolic murmur, rubs, systolic murmur Pulses: PRESENT: normal dorsalis pedis pul Vascular exam: PRESENT: normal capillary refill GI/Abdominal exam: PRESENT: normal bowel sounds, soft. ABSENT: distended, guarding, mass, organolmegaly, rebound, tenderness Rectal exam: PRESENT: deferred Extremities exam: PRESENT: full ROM. ABSENT: calf tenderness, clubbing, pedal edema Neurological exam: PRESENT: alert, awake, oriented to person, oriented to place , oriented to time, oriented to situation, CN II-XII grossly intact. ABSENT: motor sensory deficit Psychiatric exam: PRESENT: appropriate affect, normal mood. ABSENT: homicidal ideation, suicidal ideation Skin exam: PRESENT: dry, intact, warm. ABSENT: cyanosis, rash Results Laboratory Results: 06/23/16 04:25 06/23/16 04:25 06/21/16 08:55 Sputum Gram Stain - Final 06/21/16 08:55 Sputum Sputum Culture - Final Group C Beta Streptococcus Normal Milagros Impressions: Chest X-Ray 06/20/16 16:57 IMPRESSION: Mild right lower lobar pneumonia/pneumonitis. Assessment & Plan - Diagnosis (1) COPD exacerbation Is this a current diagnosis for this admission?: YesPlan: Continue present management nebs steroids (2) Diabetes Qualifiers: Diabetes mellitus type: type 2 Diabetes mellitus complication status: with unspecified complications Diabetes mellitus director long term care insulin use: without director long term care use Qualified Code(s): E11.8 - Type 2 diabetes mellitus with unspecified complications; Z79.4 - long term care pharmacist (current) use of insulin Is this a current diagnosis for this admission?: YesPlan: Continue present management Blood sugars are running on the high side we will start tapering steroids (3) Obstructive sleep apnea Is this a current diagnosis for this admission?: YesPlan: Patient does not use her C Pap at home BiPAP when necessary at night (4) Pneumonia Qualifiers: Pneumonia type: due to unspecified organism Laterality: right Lung location: lower lobe of lung Qualified Code(s): J18.1 - Lobar pneumonia, unspecified organism Is this a current diagnosis for this admission?: YesPlan: Continue cefepime and Levaquin Sputum culture showed group beta strep - Time Time Spent with patient: We'll keep the patient for another 24-48 hrs until clinically improved Time Spent with patient: 25-34 minutes Within: within 48 hours
[2016-06-24] MEDS: IBUPROFEN 600 MG TABLET PO PRN (20:56)
[2016-06-24] MEDS: ATORVASTATIN CALCIUM 10 MG TABLET PO SCH (22:06)
[2016-06-24] MEDS: PREGABALIN 75 MG CAPSULE PO SCH (22:06)
[2016-06-24] MEDS: AZITHROMYCIN 500 MG in DEXTROSE 5%-WATER 250 ML IV SCH (22:06)
[2016-06-25] MEDS: IPRATROPIUM/ALBUTEROL 0.5-2.5 MG/3 ML AMPUL NEB SCH ×4 (02:02→21:00)
[2016-06-25] MEDS: GUAIFENESIN/CODEINE PHOS 100-10 MG/ 5 ML UDC PO PRN ×4 (06:09→20:04)
[2016-06-25] MEDS: HEPARIN SOD (PORCINE) 5,000 UNIT/ML 1 ML SYRINGE SUBCUT SCH ×3 (06:09→23:45)
[2016-06-25] MEDS: METHYLPREDNISOLONE INJ 125 MG/2 ML SDV IV SCH ×3 (06:09→23:49)
[2016-06-25] MEDS: LANSOPRAZOLE 30 MG TAB.RAP.DR PO SCH ×2 (06:10→17:44)
[2016-06-25] MEDS: OXYCODONE-ACETAMINOPHEN 5-325 MG TABLET PO PRN ×4 (06:10→20:04)
[2016-06-25] MEDS: INSULIN LISPRO 100 UNIT/ML 3 ML VIAL SUBCUT PRN ×4 (08:22→23:47)
[2016-06-25] MEDS: DULOXETINE HCL 30 MG CAPSULE.DR PO SCH ×2 (11:40→17:45)
[2016-06-25] MEDS: DILTIAZEM HCL 120 MG CAP.SR.24H PO SCH (11:41)
[2016-06-25] MEDS: PREGABALIN 75 MG CAPSULE PO SCH ×2 (11:41→23:43)
[2016-06-25] MEDS: SITAGLIPTIN PHOSPHATE 50 MG TABLET PO SCH (11:41)
[2016-06-25] MEDS: GUAIFENESIN 600 MG TABLET.SA PO SCH ×2 (11:42→23:43)
[2016-06-25] MEDS: CEFTRIAXONE 1 GM/D5W RTU 50 ML IV SCH (11:43)
[2016-06-25] MEDS: ROFLUMILAST 500 MCG TABLET PO SCH (11:44)
[2016-06-25] MEDS: FLUTICASONE NASAL SPRAY 50 MCG/SPRY 120 SPRAY/16 GM NASL SCH ×2 (11:44→23:44)
[2016-06-25] MEDS: NICOTINE 14 MG/24 HR PATCH.TD24 TD SCH (12:29)
--- NOTE | 2016-06-25 15:56 | PDOC PROGRESS REPORT ---
Subjective Progress Note for:: 06/25/16 Subjective:: Per H&P:NILDA DUVALL is a 51 year old female with a past Nico history of morbid obesity diabetes hypertension and sleep apnea who had been her usual state of health until approximately 3 days ago noting exceptional shortness of breath and a productive cough of purulent sputum and pleuritic chest pain. Use of dksy-cwk-[id number] medications have been of little help prompting evaluation emergency room where she is found to have a right lower lobe pneumonia and hypoxia with a pulse oximetry of 87% on room air she's referred to the hospitalist for admission. She denies infectious contacts or recent change in medications. Patient is tobacco dependent from the age of 19. States she feels some improvement today with better air movement and less wheezing. Is able to get up and move some without disabling breathlessness. She denies chest pain palpitations, continues to complain of cough is largely nonproductive feels like phlegm comes about skilled nursing and sticks. Patient's right breast abscess has been drained by I&D with surgery yesterday; wound is mildly tender to the touch but markedly improved. He denies fevers and chills. ROS: Total 10 systems are reviewed with the patient pertinent positives and negatives noted above. Remaining systems are negative. Physical Exam Vital Signs: Temp Pulse Resp BP Pulse Ox 97.7 F 66 16 131/60 H 90 L 06/25/16 12:00 06/25/16 13:11 06/25/16 13:11 06/25/16 12:00 06/25/16 13:11 Intake & Output 06/24/16 06/25/16 06/26/16 06:59 06:59 06:59 Intake Total 2700 2518 Output Total 1 Balance 2699 2518 Weight 114.2 kg 114 kg General appearance: PRESENT: no acute distress, obese, well-developed Head exam: PRESENT: atraumatic, normocephalic Eye exam: PRESENT: conjunctiva pink, EOMI, PERRLA. ABSENT: scleral icterus Mouth exam: PRESENT: moist, tongue midline Neck exam: ABSENT: carotid bruit, JVD, lymphadenopathy, thyromegaly Respiratory exam: PRESENT: rhonchi. ABSENT: accessory muscle use, unlabored - Diffuse Cardiovascular exam: PRESENT: RRR. ABSENT: diastolic murmur, rubs, systolic murmur Pulses: PRESENT: normal dorsalis pedis pul GI/Abdominal exam: PRESENT: normal bowel sounds, soft. ABSENT: distended, guarding, rebound, tenderness Extremities exam: ABSENT: calf tenderness, pedal edema Neurological exam: PRESENT: alert, awake, oriented to person, oriented to place , oriented to time Psychiatric exam: PRESENT: appropriate affect, normal mood Skin exam: PRESENT: dry, other - Bandage over the right breast I&D is clean dry and intact. No surrounding erythema. No axillary adenopathy. Results Laboratory Results: 06/23/16 04:25 06/23/16 04:25 06/23/16 13:29 Breast - Abscess Gram Stain - Final 06/23/16 13:29 Breast - Abscess Wound Culture - Final Staphylococcus Aureus No Anaerobic Organisms Impressions: Chest X-Ray 06/20/16 16:57 IMPRESSION: Mild right lower lobar pneumonia/pneumonitis. Assessment & Plan - Diagnosis (1) Acute hypoxemic respiratory failure Is this a current diagnosis for this admission?: Yes (2) COPD exacerbation Is this a current diagnosis for this admission?: YesPlan: Continue systemic steroids and antibiotics, supplemental O2 as needed, nebulizers. (3) Abscess of right breast Is this a current diagnosis for this admission?: YesPlan: Status post I&D with group B strep and MSSA noted. Rocephin is a good choice. (4) Diabetes Qualifiers: Diabetes mellitus type: type 2 Diabetes mellitus complication status: with unspecified complications Diabetes mellitus skilled nursing insulin use: without manager terminal use Qualified Code(s): E11.8 - Type 2 diabetes mellitus with unspecified complications; Z79.4 - care home (current) use of insulin Is this a current diagnosis for this admission?: YesPlan: Hyperglycemia complicated by high dose systemic steroids. Continue current regimen. (5) Obstructive sleep apnea Is this a current diagnosis for this admission?: YesPlan: Would likely benefit from an outpatient sleep study. Already has home O2 and nebulizer. (6) Pneumonia Qualifiers: Pneumonia type: due to unspecified organism Laterality: right Lung location: lower lobe of lung Qualified Code(s): J18.1 - Lobar pneumonia, unspecified organism Is this a current diagnosis for this admission?: YesPlan: Continue usual course of Rocephin and Zithromax. As above. - Time Time Spent with patient: 25-34 minutes Anticipated discharge: Home Within: within 48 hours
[2016-06-25] MEDS: LACTOBACILLUS ACIDOPHILUS 250 MG TAB PO SCH (17:44)
[2016-06-25] MEDS: IBUPROFEN 600 MG TABLET PO PRN (17:45)
[2016-06-25] MEDS ORDERED: AZITHROMYCIN 250 MG TABLET PO SCH (22:00)
[2016-06-25] MEDS: ATORVASTATIN CALCIUM 10 MG TABLET PO SCH (23:43)
[2016-06-26] MEDS: OXYCODONE-ACETAMINOPHEN 5-325 MG TABLET PO PRN ×5 (00:19→20:10)
[2016-06-26] MEDS: IPRATROPIUM/ALBUTEROL 0.5-2.5 MG/3 ML AMPUL NEB SCH ×4 (02:28→20:55)
[2016-06-26] MEDS: LANSOPRAZOLE 30 MG TAB.RAP.DR PO SCH ×2 (06:07→17:04)
[2016-06-26] MEDS: HEPARIN SOD (PORCINE) 5,000 UNIT/ML 1 ML SYRINGE SUBCUT SCH ×3 (06:07→23:05)
[2016-06-26] MEDS: METHYLPREDNISOLONE INJ 125 MG/2 ML SDV IV SCH ×3 (06:08→23:04)
[2016-06-26] MEDS: GUAIFENESIN/CODEINE PHOS 100-10 MG/ 5 ML UDC PO PRN ×3 (06:11→20:10)
[2016-06-26] MEDS: INSULIN LISPRO 100 UNIT/ML 3 ML VIAL SUBCUT PRN ×4 (08:46→21:16)
[2016-06-26] MEDS: CEFTRIAXONE 1 GM/D5W RTU 50 ML IV SCH (10:19)
[2016-06-26] MEDS: PREGABALIN 75 MG CAPSULE PO SCH ×2 (10:20→22:57)
[2016-06-26] MEDS: DULOXETINE HCL 30 MG CAPSULE.DR PO SCH ×2 (10:20→17:04)
[2016-06-26] MEDS: SITAGLIPTIN PHOSPHATE 50 MG TABLET PO SCH (10:20)
[2016-06-26] MEDS: GUAIFENESIN 600 MG TABLET.SA PO SCH ×2 (10:20→22:57)
[2016-06-26] MEDS: LACTOBACILLUS ACIDOPHILUS 250 MG TAB PO SCH ×2 (10:21→17:04)
[2016-06-26] MEDS: DILTIAZEM HCL 120 MG CAP.SR.24H PO SCH (10:21)
[2016-06-26] MEDS: ROFLUMILAST 500 MCG TABLET PO SCH (10:21)
[2016-06-26] MEDS: FLUTICASONE NASAL SPRAY 50 MCG/SPRY 120 SPRAY/16 GM NASL SCH ×2 (10:22→22:58)
[2016-06-26] MEDS: NICOTINE 14 MG/24 HR PATCH.TD24 TD SCH (13:01)
--- NOTE | 2016-06-26 13:20 | PDOC PROGRESS REPORT ---
Subjective Progress Note for:: 06/26/16 Subjective:: Per H&P:NILDA DUVALL is a 51 year old female with a past Nico history of morbid obesity diabetes hypertension and sleep apnea who had been her usual state of health until approximately 3 days ago noting exceptional shortness of breath and a productive cough of purulent sputum and pleuritic chest pain. Use of memb-xur-jxwqhir medications have been of little help prompting evaluation emergency room where she is found to have a right lower lobe pneumonia and hypoxia with a pulse oximetry of 87% on room air she's referred to the hospitalist for admission. She denies infectious contacts or recent change in medications. Patient is tobacco dependent from the age of 19. States she feels some improvement today with better air movement and less wheezing. Is able to get up and move some without disabling breathlessness. She denies chest pain palpitations, continues to complain of cough is largely nonproductive feels like phlegm comes about longterm and sticks. Patient's right breast abscess has been drained by I&D with surgery 06/25/2016; wound is mildly tender to the touch but markedly improved. He denies fevers and chills. ROS: Total 10 systems are reviewed with the patient pertinent positives and negatives noted above. Remaining systems are negative. Physical Exam Vital Signs: Temp Pulse Resp BP Pulse Ox 97.7 F 71 16 134/59 H 97 06/26/16 08:17 06/26/16 08:17 06/26/16 08:17 06/26/16 08:17 06/26/16 08:17 Intake & Output 06/25/16 06/26/16 06/27/16 06:59 06:59 06:59 Intake Total 2518 1422 Balance 2518 1422 Weight 114 kg 114 kg General appearance: PRESENT: no acute distress, well-developed, well-nourished Head exam: PRESENT: atraumatic, normocephalic Eye exam: PRESENT: conjunctiva pink, EOMI, PERRLA. ABSENT: scleral icterus Mouth exam: PRESENT: moist, other - Mild erythema on the lateral aspect of the left tongue Neck exam: ABSENT: JVD, lymphadenopathy Respiratory exam: PRESENT: rhonchi - With opening squeaks and pops, unlabored - Diffuse. ABSENT: accessory muscle use Cardiovascular exam: PRESENT: RRR. ABSENT: diastolic murmur, rubs, systolic murmur Pulses: PRESENT: normal radial pulses Vascular exam: PRESENT: normal capillary refill GI/Abdominal exam: PRESENT: normal bowel sounds, soft. ABSENT: distended, guarding, rebound, tenderness Extremities exam: ABSENT: calf tenderness, pedal edema Musculoskeletal exam: PRESENT: ambulatory, full ROM Neurological exam: PRESENT: alert, awake, oriented to person, oriented to place , oriented to time Psychiatric exam: PRESENT: appropriate affect, normal mood Skin exam: PRESENT: warm. ABSENT: dry - Moist Results Laboratory Results: 06/23/16 04:25 06/23/16 04:25 06/25/16 20:30 Serum HCG, Qual NEGATIVE 06/23/16 13:29 Breast - Abscess Gram Stain - Final 06/23/16 13:29 Breast - Abscess Wound Culture - Final Staphylococcus Aureus No Anaerobic Organisms Impressions: Chest X-Ray 06/20/16 16:57 IMPRESSION: Mild right lower lobar pneumonia/pneumonitis. Assessment & Plan - Diagnosis (1) Acute hypoxemic respiratory failure Is this a current diagnosis for this admission?: YesPlan: Continue supplemental O2, nebulizers. (2) COPD exacerbation Is this a current diagnosis for this admission?: YesPlan: Continue systemic steroids and antibiotics, supplemental O2 as needed, nebulizers. (3) Abscess of right breast Is this a current diagnosis for this admission?: YesPlan: Status post I&D with group B strep and MSSA noted. Rocephin is a good choice. (4) Diabetes Qualifiers: Diabetes mellitus type: type 2 Diabetes mellitus complication status: with unspecified complications Diabetes mellitus adjunct faculty for medical terminology insulin use: without alf use Qualified Code(s): E11.8 - Type 2 diabetes mellitus with unspecified complications; Z79.4 - adjunct faculty for medical terminology (current) use of insulin Is this a current diagnosis for this admission?: YesPlan: Hyperglycemia complicated by high dose systemic steroids. Continue current regimen. (5) Obstructive sleep apnea Is this a current diagnosis for this admission?: YesPlan: Would likely benefit from an outpatient sleep study. Already has home O2 and nebulizer. (6) Pneumonia Qualifiers: Pneumonia type: due to unspecified organism Laterality: right Lung location: lower lobe of lung Qualified Code(s): J18.1 - Lobar pneumonia, unspecified organism Is this a current diagnosis for this admission?: YesPlan: Continue usual course of Rocephin and Zithromax. As above. (7) Sara infection Is this a current diagnosis for this admission?: YesPlan: Add oral Diflucan and nystatin swish and swallow - Time Time Spent with patient: 25-34 minutes - Plan Summary Plan Summary: Discharge home in the next 24-48 hrs.
[2016-06-26] MEDS ORDERED: FLUCONAZOLE 100 MG TABLET PO SCH (14:00)
[2016-06-26] MEDS: NYSTATIN/DEXAMETH/DIPHEN SUSP 120 ML PO SCH ×3 (14:13→22:58)
[2016-06-26] MEDS: ATORVASTATIN CALCIUM 10 MG TABLET PO SCH (22:57)
[2016-06-27] MEDS: OXYCODONE-ACETAMINOPHEN 5-325 MG TABLET PO PRN ×5 (00:52→19:35)
[2016-06-27] MEDS: IPRATROPIUM/ALBUTEROL 0.5-2.5 MG/3 ML AMPUL NEB SCH ×2 (02:09→07:33)
[2016-06-27] MEDS: LANSOPRAZOLE 30 MG TAB.RAP.DR PO SCH ×2 (05:10→17:06)
[2016-06-27] MEDS: HEPARIN SOD (PORCINE) 5,000 UNIT/ML 1 ML SYRINGE SUBCUT SCH ×3 (05:10→22:16)
[2016-06-27] MEDS: METHYLPREDNISOLONE INJ 125 MG/2 ML SDV IV SCH ×2 (05:10→22:16)
[2016-06-27] MEDS: INSULIN LISPRO 100 UNIT/ML 3 ML VIAL SUBCUT PRN ×4 (08:10→22:36)
[2016-06-27] MEDS: PREGABALIN 75 MG CAPSULE PO SCH ×2 (09:25→22:15)
[2016-06-27] MEDS: CEFTRIAXONE 1 GM/D5W RTU 50 ML IV SCH (09:25)
[2016-06-27] MEDS: DILTIAZEM HCL 120 MG CAP.SR.24H PO SCH (09:26)
[2016-06-27] MEDS: LACTOBACILLUS ACIDOPHILUS 250 MG TAB PO SCH ×2 (09:27→17:06)
[2016-06-27] MEDS: DULOXETINE HCL 30 MG CAPSULE.DR PO SCH ×2 (09:27→17:06)
[2016-06-27] MEDS: GUAIFENESIN 600 MG TABLET.SA PO SCH ×2 (09:27→22:16)
[2016-06-27] MEDS: NYSTATIN/DEXAMETH/DIPHEN SUSP 120 ML PO SCH ×4 (09:28→22:16)
[2016-06-27] MEDS: SITAGLIPTIN PHOSPHATE 50 MG TABLET PO SCH (09:28)
[2016-06-27] MEDS: ROFLUMILAST 500 MCG TABLET PO SCH (09:28)
[2016-06-27] MEDS: FLUTICASONE NASAL SPRAY 50 MCG/SPRY 120 SPRAY/16 GM NASL SCH ×2 (09:28→22:16)
[2016-06-27] MEDS ORDERED: FLUCONAZOLE 100 MG TABLET PO ONE (11:15)
[2016-06-27] MEDS: GUAIFENESIN/CODEINE PHOS 100-10 MG/ 5 ML UDC PO PRN ×2 (11:32→19:35)
[2016-06-27] MEDS: NICOTINE 14 MG/24 HR PATCH.TD24 TD SCH (12:19)
[2016-06-27] MEDS ORDERED: TIOTROPIUM BROMIDE DPI 5 CAP/KIT (18 MCG/CAP) IH ONE (12:30)
[2016-06-27] MEDS ORDERED: FLUTICASONE/SALMETEROL DISKUS 500-50 MCG/DOSE IH ONE (12:30)
[2016-06-27] MEDS: IPRATROPIUM/ALBUTEROL 0.5-2.5 MG/3 ML AMPUL NEB PRN (13:12)
--- NOTE | 2016-06-27 15:32 | PDOC PROGRESS REPORT ---
Subjective Progress Note for:: 06/27/16 Subjective:: Per H&P:NILDA DUVALL is a 51 year old female with a past Nico history of morbid obesity diabetes hypertension and sleep apnea who had been her usual state of health until approximately 3 days ago noting exceptional shortness of breath and a productive cough of purulent sputum and pleuritic chest pain. Use of odds-phb-ospyeae medications have been of little help prompting evaluation emergency room where she is found to have a right lower lobe pneumonia and hypoxia with a pulse oximetry of 87% on room air she's referred to the hospitalist for admission. She denies infectious contacts or recent change in medications. Patient is tobacco dependent from the age of 19. States she feels some improvement today with better air movement and less wheezing. Is able to get up and move some without disabling breathlessness. She denies chest pain palpitations, continues to complain of cough is largely nonproductive feels like phlegm comes about custodial and sticks. While her clinical condition does continue to improve day by day it is frustratingly slow. Patient's right breast abscess has been drained by I&D with surgery 06/25/2016; wound is mildly tender to the touch but markedly improved. He denies fevers and chills. ROS: Total 10 systems are reviewed with the patient pertinent positives and negatives noted above. Remaining systems are negative. Physical Exam Vital Signs: Temp Pulse Resp BP Pulse Ox 98.0 F 78 24 H 150/75 H 93 06/27/16 12:00 06/27/16 14:00 06/27/16 13:13 06/27/16 12:00 06/27/16 13:13 Intake & Output 06/26/16 06/27/16 06/28/16 06:59 06:59 06:59 Intake Total 1422 1790 Balance 1422 1790 Weight 114 kg 114 kg EXAM GENERAL: NAD; well developed, well nourished; obese; alert and oriented to person, place, time, situation HEENT: normocephalic, atraumatic; no conjunctival injection, no scleral icterus ; oral mucosa moist with thin white coating on the posterior oropharynx and tongue; RESPIRATORY: no accessory muscle use, no increased WOB, good air entry bilaterally; diffuse wheezes and rales and rhonchi; CARDIO: no JVD; RRR; no systolic murmur; no tachycardia GI: soft; nondistended; normal bowel sounds; no hepato spleno megaly; no rebound, rigidity, guarding; nontender VASCULAR: no carotid bruit; no abdominal bruit; no pallor; 2+ radial, DP pulse ; normal capillary refill EXTREMITIES: no calf tender; no palpable cords in calf; no clubbing, cyanosis , pedal edema PSYCH: normal affect, normal mood SKIN: warm; moist; no petechiae; no telengectasias; no jaundice; no rash Results Laboratory Results: 06/23/16 04:25 06/23/16 04:25 Impressions: Chest X-Ray 06/20/16 16:57 IMPRESSION: Mild right lower lobar pneumonia/pneumonitis. Assessment & Plan - Diagnosis (1) Acute hypoxemic respiratory failure Is this a current diagnosis for this admission?: YesPlan: Continue supplemental O2, nebulizers. (2) COPD exacerbation Is this a current diagnosis for this admission?: YesPlan: Continue systemic steroids and antibiotics, supplemental O2 as needed, nebulizers. (3) Abscess of right breast Is this a current diagnosis for this admission?: YesPlan: Status post I&D with group B strep and MSSA noted. Rocephin is a good choice. (4) Diabetes Qualifiers: Diabetes mellitus type: type 2 Diabetes mellitus complication status: with unspecified complications Diabetes mellitus skilled nursing insulin use: without skilled nursing use Qualified Code(s): E11.8 - Type 2 diabetes mellitus with unspecified complications; Z79.4 - intermediate teacher (current) use of insulin Is this a current diagnosis for this admission?: YesPlan: Hyperglycemia complicated by high dose systemic steroids. Continue current regimen. (5) Obstructive sleep apnea Is this a current diagnosis for this admission?: YesPlan: Would likely benefit from an outpatient sleep study. Already has home O2 and nebulizer. (6) Pneumonia Qualifiers: Pneumonia type: due to unspecified organism Laterality: right Lung location: lower lobe of lung Qualified Code(s): J18.1 - Lobar pneumonia, unspecified organism Is this a current diagnosis for this admission?: YesPlan: Continue usual course of Rocephin and Zithromax. As above. (7) Sara infection Is this a current diagnosis for this admission?: YesPlan: Add oral Diflucan and nystatin swish and swallow - Time Time Spent with patient: 35 or more minutes - Plan Summary Plan Summary: Hopefully tomorrow can wean to oral steroids and oral antibiotics in anticipation of discharge home hopefully in the next 48 hours
[2016-06-27] MEDS: FLUTICASONE/SALMETEROL DISKUS 500-50 MCG/DOSE IH SCH (22:16)
[2016-06-27] MEDS: ATORVASTATIN CALCIUM 10 MG TABLET PO SCH (22:16)
[2016-06-28] MEDS: OXYCODONE-ACETAMINOPHEN 5-325 MG TABLET PO PRN ×4 (00:37→14:58)
[2016-06-28] MEDS: HEPARIN SOD (PORCINE) 5,000 UNIT/ML 1 ML SYRINGE SUBCUT SCH ×2 (05:17→15:00)
[2016-06-28] MEDS: LANSOPRAZOLE 30 MG TAB.RAP.DR PO SCH (05:17)
[2016-06-28] MEDS: FLUTICASONE/SALMETEROL DISKUS 500-50 MCG/DOSE IH SCH (09:49)
[2016-06-28] MEDS: LACTOBACILLUS ACIDOPHILUS 250 MG TAB PO SCH (09:50)
[2016-06-28] MEDS: ROFLUMILAST 500 MCG TABLET PO SCH (09:51)
[2016-06-28] MEDS: DULOXETINE HCL 30 MG CAPSULE.DR PO SCH (09:51)
[2016-06-28] MEDS: GUAIFENESIN 600 MG TABLET.SA PO SCH (09:51)
[2016-06-28] MEDS: PREGABALIN 75 MG CAPSULE PO SCH (09:51)
[2016-06-28] MEDS: SITAGLIPTIN PHOSPHATE 50 MG TABLET PO SCH (09:52)
[2016-06-28] MEDS: DILTIAZEM HCL 120 MG CAP.SR.24H PO SCH (09:52)
[2016-06-28] MEDS: METHYLPREDNISOLONE INJ 125 MG/2 ML SDV IV SCH (09:54)
[2016-06-28] MEDS: FLUTICASONE NASAL SPRAY 50 MCG/SPRY 120 SPRAY/16 GM NASL SCH (09:54)
[2016-06-28] MEDS: NYSTATIN/DEXAMETH/DIPHEN SUSP 120 ML PO SCH ×2 (09:55→14:59)
[2016-06-28] MEDS ORDERED: TIOTROPIUM BROMIDE DPI 5 CAP/KIT (18 MCG/CAP) IH SCH (10:00)
[2016-06-28] MEDS ORDERED: FLUCONAZOLE 100 MG TABLET PO SCH (10:00)
[2016-06-28] MEDS: IPRATROPIUM/ALBUTEROL 0.5-2.5 MG/3 ML AMPUL NEB PRN (12:02)
--- NOTE | 2016-06-28 12:18 | PDOC DISCHARGE SUMMARY ---
General - Admit/Disc Date/PCP Admission Date/Primary Care Provider: 06/20/16 19:36 Discharge Date: 06/28/16 - Discharge Diagnosis (1) Acute hypoxemic respiratory failure Is this a current diagnosis for this admission?: YesSummary: Back to baseline. Patient has access to home O2, nebulizers and CPAP machine. (2) COPD exacerbation Is this a current diagnosis for this admission?: YesSummary: Markedly improved with the addition of inhalers, will continue Advair and Spiriva and a course of prednisone. (3) Abscess of right breast Is this a current diagnosis for this admission?: YesSummary: Continue course of oral antibiotics changed from Rocephin to Vantin. Follow-up with surgery for additional I&D as needed. Follow-up with primary care provider in one week for wound check. Continue daily dry dressing changes. (4) Diabetes Is this a current diagnosis for this admission?: YesSummary: Resume home regimen. Follow-up with primary care provider regarding further titration. (5) Obstructive sleep apnea Is this a current diagnosis for this admission?: YesSummary: Resume home CPAP. (6) Pneumonia Is this a current diagnosis for this admission?: YesSummary: Continue treatments as noted above including the antibiotics for the abscess. (7) Sara infection Is this a current diagnosis for this admission?: YesSummary: Continue another day of Diflucan. - Additional Information Resuscitation Status: Full Code Discharge Diet: Diabetic Discharge Activity: Activity As Tolerated Home Medications: Albuterol Sulfate [Albuterol Sulfate 2.5mg/3 mL] 1 vial IH Q4HP PRN 06/20/16 Albuterol Sulfate [Ventolin HFA MDI 18 GM] 2 puff IH Q4HP PRN 06/20/16 Atorvastatin Calcium [Lipitor 10 mg Tablet] 10 mg PO QHS 06/20/16 Canagliflozin [Invokana] 100 mg PO DAILY 06/20/16 Dextroamphetamine/Amphetamine [Adderall 20 mg Tablet] 20 mg PO BID 06/20/16 Duloxetine HCl [Cymbalta] 60 mg PO BID 06/20/16 Famotidine [Pepcid 20 mg Tablet] 20 mg PO HSP PRN 06/20/16 Ibuprofen [Advil] 600 mg PO Q6HP PRN 06/20/16 Naproxen Na-Diphenhydramin HCl [Aleve Pm Caplet] 1 each PO HSP PRN 06/20/16 Pantoprazole Sodium [Protonix] 40 mg PO BIDBS 06/20/16 Pregabalin [Lyrica 100 mg Capsule] 100 mg PO BID 06/20/16 Pregabalin [Lyrica 50 mg Capsule] 50 mg PO BID 06/20/16 Roflumilast [Daliresp 500 mcg Tablet] 500 mcg PO DAILY 06/20/16 Sitagliptin Phosphate [Januvia] 100 mg PO DAILY 06/20/16 Cefpodoxime Proxetil [Vantin 200 mg Tablet] 1 tab PO Q12 #14 tab 06/28/16 Diltiazem HCl [Cardizem Cd 120 mg Capsule] 120 mg PO DAILY #30 cap.sr.24h Fluconazole [Diflucan 100 mg Tablet] 200 mg PO DAILY #1 tablet 06/28/16 Fluticasone/Salmeterol [Advair 500-50 Diskus 14 Dose/Diskus] 1 inh IH Q12 #1 inhaler 06/28/16 Guaifenesin/Codeine Phos [Robitussin-AC Liquid 5 ml Udcup] 10 ml PO QIDP PRN # 120 ml 06/28/16 Nicotine [Nicoderm 14 mg/24 Hr Transdermal Patch] 1 each TD DAILY@1300 #21 patch.td24 06/28/16 Oxycodone HCl/Acetaminophen [Percocet 5-325 mg Tablet] 1 tab PO Q4HP PRN #14 tablet 06/28/16 Prednisone 40 mg PO DAILY #20 tablet 06/28/16 Tiotropium [place] [Spiriva Handihaler 5 Cap/Kit (18 Mcg/Cap)] 1 cap IH DAILY # 30 cap 06/28/16 History of Present Illness Patient complains of: Shortness of breath and cough History of Present Illness: NILDA DUVALL is a 51 year old femalewith a past [place] history of morbid obesity diabetes hypertension and sleep apnea who had been her usual state of health until approximately 3 days ago noting exceptional shortness of breath and a productive cough of purulent sputum and pleuritic chest pain. Use of over -the-counter medications have been of little help prompting evaluation emergency room where she is found to have a right lower lobe pneumonia and hypoxia with a pulse oximetry of 87% on room air she's referred to the hospitalist for admission. She denies infectious contacts or recent change in medications. Patient is tobacco dependent from the age of 19. Hospital Course Hospital Course: She was admitted to the hospital service and placed on broad-spectrum antibiotics, high-dose systemic steroids that were weaned gradually over the course of the next 7 days, aggressive pulmonary toilet including nebulizers and incentive spirometer and flutter valve. Gradually over the course of the next week she showed improvement such that on the day of discharge she seems to be back to baseline and stable for discharge home. States she feels some improvement today with better air movement and less wheezing. Is able to get up and move some without disabling breathlessness. She denies chest pain palpitations, continues to complain of cough is largely nonproductive feels like phlegm comes about jail and sticks. Physical Exam Vital Signs: Temp Pulse Resp BP Pulse Ox 97.3 F 71 16 150/75 H 93 06/28/16 11:13 06/28/16 12:05 06/28/16 12:05 06/28/16 11:13 06/28/16 12:05 Intake & Output 06/27/16 06/28/16 06/29/16 06:59 06:59 06:59 Intake Total 1790 1160 Balance 1790 1160 Weight 114 kg 114 kg EXAM GENERAL: NAD; well developed, well nourished; obese; alert and oriented to person, place, time, situation HEENT: normocephalic, atraumatic; no conjunctival injection, no scleral icterus ; oral mucosa moist with thin white coating on the posterior oropharynx and tongue; RESPIRATORY: no accessory muscle use, no increased WOB, good air entry bilaterally; and expiratory wheezes posterior bases and no rales or rhonchi; CARDIO: no JVD; RRR; no systolic murmur; no tachycardia GI: soft; nondistended; normal bowel sounds; no hepato spleno megaly; no rebound, rigidity, guarding; nontender VASCULAR: no carotid bruit; no abdominal bruit; no pallor; 2+ radial, DP pulse ; normal capillary refill EXTREMITIES: no calf tender; no palpable cords in calf; no clubbing, cyanosis , pedal edema PSYCH: normal affect, normal mood SKIN: warm; moist; no petechiae; no telengectasias; no jaundice; no rash Results Laboratory Results: 06/23/16 04:25 06/23/16 04:25 Impressions: Chest X-Ray 06/20/16 16:57 IMPRESSION: Mild right lower lobar pneumonia/pneumonitis. Qualifiers PATEINT BEING DISCHARGED WITH ANY OF THE FOLLOWING DIAGNOSIS?: No Plan Discharge Plan: Discharge home with continued antibiotics and oral steroids with breathing treatments as noted above, supplemental home O2 as needed. Nebulizers at home and home CPAP. Follow up with her primary care provider in one week. Return to the hospital for worsening condition. Time Spent: Greater than 30 Minutes
[2016-06-28] MEDS: NICOTINE 14 MG/24 HR PATCH.TD24 TD SCH (12:25)
[2016-06-28 12:58] VITALS: BP 147/72
[2016-06-28] MEDS: GUAIFENESIN/CODEINE PHOS 100-10 MG/ 5 ML UDC PO PRN (15:03)
== END 2016-06-28 17:25 | disposition home or self-care (01) | DRG 193 ==
LOC: ER 16:49 → EH 19:36 → UNDOADMIN 20:10 → 5 06-21 00:02
PROVIDERS: ADMIT Internal Medicine; ATTEND Internal Medicine
PROC: 5A09457 Assistance with Respiratory Ventilation, 24-96 Consecutive Hours, Continuous Positive Airway Pressure (ICD-10-PCS; principal; 2016-06-20)
PROC: 0H9T0ZZ Drainage of Right Breast, Open Approach (ICD-10-PCS; 2016-06-23)
DX: J18.1 Lobar pneumonia, unspecified organism (principal); J96.01 Acute respiratory failure with hypoxia; J44.1 Chronic obstructive pulmonary disease with (acute) exacerbation; Z68.41 Body mass index [BMI] 40.0-44.9, adult; B37.0 Candidal stomatitis; N61.1 Abscess of the breast and nipple; I10 Essential (primary) hypertension; F17.210 Nicotine dependence, cigarettes, uncomplicated; E78.01 Familial hypercholesterolemia; E11.9 Type 2 diabetes mellitus without complications; Z90.49 Acquired absence of other specified parts of digestive tract; E66.01 Morbid (severe) obesity due to excess calories; G47.33 Obstructive sleep apnea (adult) (pediatric); D64.9 Anemia, unspecified; F32.9 Major depressive disorder, single episode, unspecified; Z79.899 Other long term (current) drug therapy; Z88.6 Allergy status to analgesic agent; Z82.49 Family history of ischemic heart disease and other diseases of the circulatory system; Z79.4 Long term (current) use of insulin; B95.4 Other streptococcus as the cause of diseases classified elsewhere; B95.61 Methicillin susceptible Staphylococcus aureus infection as the cause of diseases classified elsewhere
CPT/HCPCS: 36415; 71010; 80048; 80053; 82550; 82553; 82962; 83735; 83880; 84484; 84703; 85025; 87040; 87070; 87075; 87077; 87186; 87205; 87804; 93005; 93010; 94640; 94660; 94667; 94668; 94799; 96365; 96375; 99285; J0456; J0696; J1644; J1815; J1956; J2930; J3490; J7030; J7060; J7620

== ENCOUNTER 2017-02-21 10:06 | Outpatient (CLI) | payer MEDICARE ==
[~2017-02-21 10:06] MED LIST: IRON DEXTRAN COMPLEX 25 MG in NORMAL SALINE 100 ML IV PRN; IRON DEXTRAN COMPLEX 25 MG in SYRINGE, DISPOSABLE, 1 EACH IV PRN; IRON DEXTRAN COMPLEX 775 MG in NORMAL SALINE 500 ML IV PRN; NORMAL SALINE 250 ML IV PRN
[2017-02-21 10:23] VITALS: BP 140/64
== END 2017-02-21 14:16 | disposition home or self-care (01) ==
LOC: II 10:06 → 5TH 10:41 → II 14:16
PROVIDERS: ATTEND Internal Medicine
PROC: 3E033GC Introduction of Other Therapeutic Substance into Peripheral Vein, Percutaneous Approach (ICD-10-PCS; principal; 2017-02-21)
DX: D50.8 Other iron deficiency anemias (principal); K90.9 Intestinal malabsorption, unspecified
CPT/HCPCS: 96365; 96366; 96374; J1750; J7040; J3490; 96375